=== PATIENT | male | born 1960 | race Caucasian/White ===

== ENCOUNTER 2017-02-07 08:08 | Inpatient (IN) | payer OTHER ==
[~2017-02-07] VITALS: Ht 165.1 cm; Wt 115.2 kg
[2017-02-07 08:32] VITALS: Ht 165.1 cm; Wt 115.2 kg
[2017-02-07 09:23] LABS: CALCIUM 8.6 mg/dL (8.5-10.1); CARBON DIOXIDE 28.3 mmol/L (21-32); CHLORIDE SERUM 108 mmol/L (98-107); CREATININE SERUM 0.8 mg/dL (0.7-1.3); GFR1 > 60 mL/min; GLUCOSE SERUM 167 mg/dL (74-106); POTASSIUM SERUM 4.4 mmol/L (3.5-5.1); SODIUM SERUM 143 mmol/L (136-145)
[2017-02-07 09:28] LABS: ALKALINE PHOSPHATASE 64 U/L (46-116); ALT/SGPT 34 U/L (16-63); AST/SGOT 9 U/L (15-37); BILIRUBIN TOTAL 0.28 mg/dL (0.20-1.00); TOTAL PROTEIN, SERUM 6.8 g/dL (6.4-8.2)
[2017-02-07 09:31] LABS: ALBUMIN 2.8 g/dL (3.4-5.0)
[2017-02-07] MEDS ORDERED: HYDROXYZINE PAM25 MG PO (09:57)
[2017-02-07] MEDS ORDERED: VENLAFAXINE225 M1 PO (09:57)
[2017-02-07] MEDS ORDERED: LANTUS SOLOS100 U/M1 SQ ×2 (09:58)
[2017-02-07] MEDS ORDERED: HUMULIN R100 U/1 M1 SQ (10:00)
[2017-02-07] MEDS ORDERED: COLACE100 MG PO (10:00)
[2017-02-07] MEDS ORDERED: TYLENOL WITH CO1 TA2 PO (10:02)
[2017-02-07] MEDS ORDERED: PROCTOSOL-HC2.5% PR (10:03)
[2017-02-07] MEDS ORDERED: [UNRECOGNIZED DRUG - OTHER] PR (10:04)
[2017-02-07] MEDS ORDERED: TYLENOL325 M1 PO (10:06)
[2017-02-07] MEDS ORDERED: FLO4 PO (10:07)
[2017-02-07] MEDS ORDERED: BACITRACIN500 U/G2 TOP (10:07)
[2017-02-07] MEDS ORDERED: ALDACTONE100 MG PO (10:08)
[2017-02-07] MEDS ORDERED: LASIX20 MG PO (10:08)
[2017-02-07] MEDS ORDERED: GABAPENTIN600 M1 PO (10:08)
[2017-02-07] MEDS ORDERED: BAYER ASPIRIN R81 MG PO (10:09)
[2017-02-07] MEDS ORDERED: ASSORTED FRUIT G4 GM PO (10:09)
[2017-02-07 10:34] LABS: BASOPHIL % 0.6 % (0-2); PLATELET COUNT 189 x10^3mcL (130-400); RED CELL DISTRIBUTION WIDTH 14.5 % (11.5-14.5)
[2017-02-07 13:52] VITALS: BP 109/59
[2017-02-07 17:41] VITALS: BP 130/64
[2017-02-07 21:41] VITALS: BP 101/56
[2017-02-08] VITALS (10 sets, daily range): BP systolic 93–132; BP diastolic 43–67
[2017-02-09 05:19] VITALS: BP 92/52
[2017-02-09 10:08] VITALS: BP 106/59
[2017-02-09 13:12] LABS: BASOPHIL % 0.6 % (0-2); PLATELET COUNT 163 x10^3mcL (130-400); RED CELL DISTRIBUTION WIDTH 14.4 % (11.5-14.5)
[2017-02-09 14:02] VITALS: BP 106/59
[2017-02-09 14:36] VITALS: BP 106/52
[2017-02-09 16:42] VITALS: BP 109/60
== END 2017-02-09 18:23 | disposition other institution (70) | DRG 378 ==
LOC: ED 08:08 → DU 11:07
PROVIDERS: Internal Medicine Gastroenterology; Specialist; ADMIT Internal Medicine
PROC: 0DJD8ZZ Inspection of Lower Intestinal Tract, Via Natural or Artificial Opening Endoscopic (ICD-10-PCS; principal; 2017-02-08 10:00)
DX: K62.5 Hemorrhage of anus and rectum (principal); Z68.41 Body mass index [BMI] 40.0-44.9, adult; K74.60 Unspecified cirrhosis of liver; D50.0 Iron deficiency anemia secondary to blood loss (chronic); B18.2 Chronic viral hepatitis C; E11.9 Type 2 diabetes mellitus without complications; E66.9 Obesity, unspecified; K64.9 Unspecified hemorrhoids
CPT/HCPCS: 45378; 82962; J1200; J1610; J2250; J2270; J2310; J3010; J3490; Q0092; Q0177